=== PATIENT | male | born 1960 | race Caucasian/White ===

== ENCOUNTER 2018-10-27 00:02 | Emergency (ER) | payer OTHER ==
[2018-10-27] MEDS: HYDROCODONE/APAP (5/325) TAB PO (02:43)
[2018-10-27] MEDS: IBUPROFEN 600 MG TAB PO (02:43)
== END 2018-10-27 04:59 | disposition home or self-care (01) ==
LOC: FTE 00:02
DX: S79.912A Unspecified injury of left hip, initial encounter (principal); W01.0XXA Fall on same level from slipping, tripping and stumbling without subsequent striking against object, initial encounter; Y92.9 Unspecified place or not applicable; Z96.642 Presence of left artificial hip joint
CPT/HCPCS: 72100; 73501; 73510; 99284-25

== ENCOUNTER 2019-04-26 05:56 | Inpatient (IN) | payer OTHER ==
[2019-04-26] MEDS ORDERED: ACETAMINOPHEN 325 MG TAB PO (10:30)
[2019-04-26] MEDS ORDERED: morphine 2 MG INJ IV (10:30)
[2019-04-26] MEDS ORDERED: ONDANSETRON 4 MG INJ IV (10:30)
[2019-04-26] MEDS ORDERED: HYDROCODONE/APAP (5/325) TAB PO (10:30)
[2019-04-26] MEDS ORDERED: NACL 0.9% 3 ML SYG IV (10:30)
[2019-04-26] MEDS ORDERED: MAGNESIUM HYDROXIDE 30ML CUP PO (10:30)
[2019-04-26 10:53] LABS: ADD MAN DIFF? NO
[2019-04-26 10:56] LABS: BASOPHILS % 0.3 % (0.0-2.0); EOSINOPHILS # 0.2 10^3/ul (0.0-0.5); EOSINOPHILS % 1.3 % (0.0-7.0); HEMATOCRIT 28.8 % (42.0-52.0); HEMOGLOBIN 9.6 g/dl (14.0-18.0); LYMPHOCYTES % 8.1 % (15.0-51.0); MEAN CORPUSCULAR HEMOGLOBIN 31.7 pg (29.0-33.0); MEAN CORPUSCULAR HGB CONC 33.3 g/dl (32.0-37.0); MEAN PLATELET VOLUME 11.5 fl (7.4-10.4); MONOCYTE # 1.2 10^3/ul (0.3-0.9); NEUTROPHIL # 9.6 10^3/ul (1.6-7.5); NEUTROPHILS % 79.8 % (39.0-77.0); PLATELET COUNT 168 10^3/UL (140-415); RED BLOOD COUNT 3.03 10^6/ul (4.70-6.10); RED CELL DISTRIBUTION WIDTH 12.6 % (11.5-14.5)
[2019-04-26 10:56] LABS: WHITE BLOOD COUNT 12.1 10^3/ul (4.8-10.8)
[2019-04-26 11:16] LABS: ALANINE AMINOTRANSFERASE 29 IU/L (13-69); ALBUMIN 3.3 g/dl (3.3-4.9); ALBUMIN/GLOBULIN RATIO 1.37; ALKALINE PHOSPHATASE 43 IU/L (42-121); ANION GAP 6 (5-13); ASPARTATE AMINO TRANSFERASE 17 IU/L (15-46); BILIRUBIN,INDIRECT 0.5 mg/dl (0-1.1); BILIRUBIN,TOTAL 0.5 mg/dl (0.2-1.3); BLOOD UREA NITROGEN 15 mg/dl (7-20); CALCIUM 8.5 mg/dl (8.4-10.2); CARBON DIOXIDE 32 mmol/L (21-31); CHLORIDE 101 mmol/L (97-110); CREATININE 0.74 mg/dl (0.61-1.24); Estimated GFR > 60 mL/min (>60); GLUCOSE 110 mg/dl (70-220); POTASSIUM 3.8 mmol/L (3.5-5.1); SODIUM 139 mmol/L (135-144); TOTAL PROTEIN 5.7 g/dl (6.1-8.1)
[2019-04-26] MEDS: LEVOFLOXACIN 750MG/D5W (PMX) 150 ML IVPB (12:32)
[2019-04-26] MEDS: clonAZEPAM 0.5 MG TAB PO ×2 (12:35→21:00)
[2019-04-26] MEDS: BUPROPION (XL) 150 MG TAB PO (12:35)
[2019-04-26] MEDS: HEPARIN 5,000 UNIT/1 ML VIAL SC ×3 (14:39→22:00)
[2019-04-26] MEDS: LACTATED RINGER'S 1,000 ML IV (16:43)
[2019-04-26] MEDS ORDERED: ALBUTEROL/IPRATROPIUM (NEB) 3 ML AMP HHN (17:00)
[2019-04-26 18:29] LABS: PROCALCITONIN 1.03 ng/mL (0.00-0.10)
[2019-04-26] MEDS ORDERED: NON-FORMULARY/PATIENT OWN MED (Lurasidone Hcl (Latuda) 120 MG) PO (21:00)
[2019-04-26] MEDS: ATORVASTATIN 20 MG TAB PO (21:41)
[2019-04-27] MEDS: LACTATED RINGER'S 1,000 ML IV ×4 (04:17→19:30)
[2019-04-27] MEDS: HEPARIN 5,000 UNIT/1 ML VIAL SC ×3 (06:00→19:57)
[2019-04-27] MEDS: PANTOPRAZOLE (EC) 40 MG TAB PO (06:17)
[2019-04-27 06:19] LABS: ADD MAN DIFF? NO
[2019-04-27 06:26] LABS: BASOPHILS % 0.5 % (0.0-2.0); EOSINOPHILS # 0.2 10^3/ul (0.0-0.5); EOSINOPHILS % 2.4 % (0.0-7.0); HEMATOCRIT 27.1 % (42.0-52.0); HEMOGLOBIN 8.6 g/dl (14.0-18.0); LYMPHOCYTES % 12.5 % (15.0-51.0); MEAN CORPUSCULAR HEMOGLOBIN 31.3 pg (29.0-33.0); MEAN CORPUSCULAR HGB CONC 31.7 g/dl (32.0-37.0); MEAN CORPUSCULAR VOLUME 98.5 fl (82.0-101.0); MEAN PLATELET VOLUME 11.6 fl (7.4-10.4); MONOCYTE # 0.9 10^3/ul (0.3-0.9); MONOCYTES % 11.8 % (0.0-11.0); NEUTROPHIL # 5.7 10^3/ul (1.6-7.5); NEUTROPHILS % 72.4 % (39.0-77.0); PLATELET COUNT 157 10^3/UL (140-415); RED BLOOD COUNT 2.75 10^6/ul (4.70-6.10); RED CELL DISTRIBUTION WIDTH 12.6 % (11.5-14.5)
[2019-04-27 06:26] LABS: WHITE BLOOD COUNT 7.9 10^3/ul (4.8-10.8)
[2019-04-27 07:34] LABS: ALANINE AMINOTRANSFERASE 29 IU/L (13-69); ALBUMIN 2.7 g/dl (3.3-4.9); ALBUMIN/GLOBULIN RATIO 1.12; ALKALINE PHOSPHATASE 48 IU/L (42-121); ANION GAP 4 (5-13); ASPARTATE AMINO TRANSFERASE 22 IU/L (15-46); BILIRUBIN,INDIRECT 0.2 mg/dl (0-1.1); BILIRUBIN,TOTAL 0.2 mg/dl (0.2-1.3); BLOOD UREA NITROGEN 9 mg/dl (7-20); CALCIUM 8.2 mg/dl (8.4-10.2); CARBON DIOXIDE 34 mmol/L (21-31); CHLORIDE 100 mmol/L (97-110); CHOL/HDL RATIO 3.8 RATIO; CHOLESTEROL 115 mg/dl (100-200); CREATININE 0.61 mg/dl (0.61-1.24); Estimated GFR > 60 mL/min (>60); GLUCOSE 91 mg/dl (70-220); HDL CHOLESTEROL 30 mg/dl (30-78); LDL CHOLESTEROL,CALCULATED 64 mg/dl; MAGNESIUM 1.9 mg/dl (1.7-2.5); SODIUM 138 mmol/L (135-144); TOTAL PROTEIN 5.1 g/dl (6.1-8.1); TRIGLYCERIDES 105 mg/dl (0-149)
[2019-04-27 07:44] LABS: FREE THYROXINE INDEX (Calc) 2.27 ug/ml (0.65-3.89); T4 (THYROXINE) 5.4 ug/dl (5.5-11.0)
[2019-04-27] MEDS: BUPROPION (XL) 150 MG TAB PO (08:39)
[2019-04-27] MEDS: clonAZEPAM 0.5 MG TAB PO ×2 (08:39→19:48)
[2019-04-27] MEDS: SOD CHLORIDE 0.9% 500 ML IV (08:39)
[2019-04-27] MEDS ORDERED: NON-FORMULARY/PATIENT OWN MED (Omeprazole* 40 MG) PO (09:00)
[2019-04-27] MEDS: LEVOFLOXACIN 750MG/D5W (PMX) 150 ML IVPB (10:07)
[2019-04-27] MEDS: [UNRECOGNIZED DRUG - OTHER] XX ×2 (13:00→19:49)
[2019-04-27] MEDS: ATORVASTATIN 20 MG TAB PO (19:48)
[2019-04-28] MEDS: [UNRECOGNIZED DRUG - OTHER] XX (05:00)
[2019-04-28] MEDS: LACTATED RINGER'S 1,000 ML IV ×2 (05:00→08:50)
[2019-04-28] MEDS: PANTOPRAZOLE (EC) 40 MG TAB PO ×2 (06:30→08:49)
[2019-04-28] MEDS: LEVOFLOXACIN 750MG/D5W (PMX) 150 ML IVPB (08:49)
[2019-04-28] MEDS: BUPROPION (XL) 150 MG TAB PO (08:50)
[2019-04-28] MEDS: clonAZEPAM 0.5 MG TAB PO (08:50)
[2019-04-28] MEDS: HEPARIN 5,000 UNIT/1 ML VIAL SC (08:57)
[2019-04-28 10:20] LABS: WHITE BLOOD COUNT 6.2 10^3/ul (4.8-10.8)
[2019-04-28 10:20] LABS: ADD MAN DIFF? NO; BASOPHILS % 0.6 % (0.0-2.0); EOSINOPHILS # 0.2 10^3/ul (0.0-0.5); EOSINOPHILS % 2.9 % (0.0-7.0); HEMATOCRIT 27.3 % (42.0-52.0); HEMOGLOBIN 8.6 g/dl (14.0-18.0); LYMPHOCYTES # 1.4 10^3/ul (0.8-2.9); LYMPHOCYTES % 23.3 % (15.0-51.0); MEAN CORPUSCULAR HEMOGLOBIN 30.8 pg (29.0-33.0); MEAN CORPUSCULAR HGB CONC 31.5 g/dl (32.0-37.0); MEAN CORPUSCULAR VOLUME 97.8 fl (82.0-101.0); MEAN PLATELET VOLUME 10.8 fl (7.4-10.4); MONOCYTE # 0.9 10^3/ul (0.3-0.9); MONOCYTES % 14.1 % (0.0-11.0); NEUTROPHIL # 3.6 10^3/ul (1.6-7.5); NEUTROPHILS % 58.6 % (39.0-77.0); PLATELET COUNT 184 10^3/UL (140-415); RED BLOOD COUNT 2.79 10^6/ul (4.70-6.10); RED CELL DISTRIBUTION WIDTH 12.3 % (11.5-14.5)
[2019-04-28 10:38] LABS: ALANINE AMINOTRANSFERASE 27 IU/L (13-69); ALBUMIN 2.9 g/dl (3.3-4.9); ALKALINE PHOSPHATASE 41 IU/L (42-121); ANION GAP 4 (5-13); ASPARTATE AMINO TRANSFERASE 30 IU/L (15-46); BILIRUBIN,INDIRECT 0.3 mg/dl (0-1.1); BILIRUBIN,TOTAL 0.3 mg/dl (0.2-1.3); BLOOD UREA NITROGEN 8 mg/dl (7-20); CALCIUM 8.4 mg/dl (8.4-10.2); CARBON DIOXIDE 37 mmol/L (21-31); CHLORIDE 98 mmol/L (97-110); CREATININE 0.71 mg/dl (0.61-1.24); Estimated GFR > 60 mL/min (>60); GLUCOSE 101 mg/dl (70-220); POTASSIUM 3.5 mmol/L (3.5-5.1); SODIUM 139 mmol/L (135-144); TOTAL PROTEIN 5.6 g/dl (6.1-8.1)
[2019-04-28 10:39] LABS: ALBUMIN/GLOBULIN RATIO 1.07
[2019-04-28 11:36] LABS: IRON < 10 ug/dl (35-150)
[2019-04-28 11:42] LABS: TOTAL IRON BINDING CAPACITY 241 ug/dl (241-421)
[2019-04-28] MEDS ORDERED: CEPASTAT LOZENGE MT (12:00)
[2019-04-28 12:09] LABS: FERRITIN 65.2 ng/ml (11.1-264.0)
[2019-04-28 16:09] LABS: AMPHETAMINE/METHAMPHETAMINE Negative (NEGATIVE); BARBITURATES Negative (NEGATIVE); BENZODIAZEPINES Negative (NEGATIVE); CANNABINOIDS Negative (NEGATIVE); COCAINE Negative (NEGATIVE)
[2019-04-28 16:11] LABS: OPIATES Positive (NEGATIVE)
== END 2019-04-28 18:30 | disposition left against medical advice (07) | DRG 314 ==
LOC: 6WM 05:56
PROVIDERS: Internal Medicine
DX: I95.9 Hypotension, unspecified (principal); J18.9 Pneumonia, unspecified organism; D64.9 Anemia, unspecified; F31.9 Bipolar disorder, unspecified; F10.10 Alcohol abuse, uncomplicated; E61.1 Iron deficiency
CPT/HCPCS: 70450; 71045; 80053; 80061; 80307; 82728; 83036; 83540; 83735; 84100; 84145; 84436; 84443; 84479; 85025; 87040-91; 87070; 87086; 87400; 93306; 93880; 97161; 99217

== ENCOUNTER 2019-06-05 06:18 | Day surgery (SDC) | payer OTHER ==
[2019-06-05] MEDS ORDERED: LIDOCAINE 2% (SDV) 5 ML INJ (10:26)
[2019-06-05] MEDS ORDERED: ROCURONIUM 50 MG INJ (10:27)
[2019-06-05] MEDS ORDERED: MIDAZOLAM 1 MG/ML 2 ML INJ (10:27)
[2019-06-05] MEDS ORDERED: PROPOFOL 20 ML (10:27)
[2019-06-05] MEDS ORDERED: ONDANSETRON 4 MG INJ (10:52)
[2019-06-05] MEDS ORDERED: DEXAMETHASONE 4 MG/ML 5 ML INJ (10:52)
[2019-06-05] MEDS: LIDOCAINE 1%/EPI (1:100,000) (MDV) 20 ML INJ (11:06)
[2019-06-05] MEDS ORDERED: SUGAMMADEX SODIUM 200 MG/2 ML VIAL IV (11:31)
[2019-06-05] MEDS ORDERED: KETOROLAC 30 MG INJ (11:32)
[2019-06-05] MEDS ORDERED: BACITRACIN/POLYMYXIN 28.35 GM OINT TOP (11:35)
[2019-06-05] MEDS ORDERED: HYDROmorphONE 1 MG/5 ML IV SYRINGE IV ×3 (12:00)
[2019-06-05] MEDS ORDERED: HYDROCODONE/APAP (7.5/325) TAB PO (12:30)
== END 2019-06-05 13:21 | disposition home or self-care (01) ==
LOC: SDS 06:18
DX: C44.311 Basal cell carcinoma of skin of nose (principal)
CPT/HCPCS: 14060; 71045; 88305

== ENCOUNTER 2019-06-14 22:57 | Emergency (ER) | payer OTHER | END 2019-06-15 00:57 | disposition home or self-care (01) | LOC: FTE 06-15 00:57 | DX: Z48.01 Encounter for change or removal of surgical wound dressing (principal) | CPT/HCPCS: 99281; Z7502 ==